=== PATIENT | female | born 2000 | race Caucasian/White ===

== ENCOUNTER 2019-08-17 09:00 | Inpatient (IN) | payer OTHER ==
[2019-08-17] MEDS: ELECTROLYTE-148 SOLN 1,000 ML IV SCH ×2 (09:50→16:15)
--- NOTE | 2019-08-17 09:57 | HP ---
Past Medical History - Admission Chief Complaint: 18 yo at 39+ weeks for induction due to IUGR. History Source: Patient Limitations to Obtaining History: No Limitations - Past Surgical History Hx Myomectomy: No Hx Transabdominal Cerclage: No Home Medications - Allergies Allergies/Adverse Reactions: Allergies Allergy/AdvReac Type Severity Reaction Status Date / Time No Known Allergies Allergy Verified 08/17/19 09:52 - Home Medications Home Medications: Ambulatory Orders NK [No Known Home Medication] 08/17/19 Review of Systems - Review of Systems Constitutional: reports: No Symptoms Eyes: reports: No Symptoms HENT: reports: No Symptoms Neck: reports: No Symptoms Cardiovascular: reports: No Symptoms Respiratory: reports: No Symptoms Gastrointestinal: reports: No Symptoms Genitourinary: reports: No Symptoms Breasts: reports: No Symptoms Reported Musculoskeletal: reports: No Symptoms Integumentary: reports: No Symptoms Neurological: reports: No Symptoms Endocrine: reports: No Symptoms Hematology/Lymphatic: reports: No Symptoms Psychiatric: reports: No Symptoms Physical Exam - Maternity Constitutional: Yes: Well Nourished Eyes: Yes: WNL HENT: Yes: WNL Neck: Yes: WNL Cardiovascular: Yes: WNL Lungs: Clear to auscultation Breast(s): Yes: WNL - Abdominal Exam/OB Number of Fetuses: Single Presentation: Vertex Contractions: No Monitor Mode: External Category: I Accelerations: Uniform Decelerations: None - Vaginal Exam/OB Vaginal Bleeding: No Speculum Exam: No Dilatation (cm): 1 cm Effacement (%): 50% Amniotic Membrane Status: Intact Presentation: Vertex/Position Station: -2 - Physical Exam Musculoskeletal: Yes: WNL Extremities: Yes: WNL Assessment/Plan IUP at 39+ weeks plan induction of labor oxytocin.
[2019-08-17] MEDS ORDERED: BUTORPHANOL TARTRATE 1 MG/ML VIAL IVPB ONE (10:01)
[2019-08-17] MEDS ORDERED: AMPICILLIN - 2 GM in SODIUM CHLORIDE 100 ML IVPB ONE (10:04)
[2019-08-17] MEDS ORDERED: SODIUM CHLORIDE 100 ML IVPB ONE ×3 (10:05→17:14)
[2019-08-17] MEDS ORDERED: AMPICILLIN SODIUM 2 GM VIAL ONE (10:05)
[2019-08-17 10:33] VITALS: BMI 27.8
[2019-08-17 10:43] LABS: BASO % 0.1 % (0-2.0); EOS % 0.5 % (0-4.5); HEMATOCRIT 35.3 % (32.4-45.2); HEMOGLOBIN 11.4 GM/dL (10.7-15.3); LYMPH % 18.5 % (8-40); MCH 26.9 pg (25.7-33.7); MCHC 32.2 g/dl (32.0-36.0); MEAN CELL VOLUME 83.7 fl (80-96); MEAN PLT VOLUME 9.9 fl (7.5-11.1); MONO % 8.3 % (3.8-10.2); NEUT % 72.6 % (42.8-82.8); PLATELET COUNT 170 K/MM3 (134-434); RBC 4.21 M/mm3 (3.60-5.2); RDW 14.7 % (11.6-15.6); WHITE BLOOD COUNT 7.8 K/mm3 (4.0-10.0)
[2019-08-17 10:49] LABS: INR 0.89 (0.83-1.09); PROTHROMBIN TIME (PATIENT) 10.5 SEC (9.7-13.0)
[2019-08-17] MEDS ORDERED: OXYTOCIN 30 UNITS in 0.9% NS 30 UNIT/500 ML INFUS.BAG IVPB ONE (10:51)
[2019-08-17 10:52] LABS: ACTIVATED PTT 30.1 SECONDS (25.2-36.5)
[2019-08-17] MEDS: OXYTOCIN 30 UNITS in 0.9% NS 30 UNIT/500 ML INFUS.BAG IVPB SCH (10:55)
[2019-08-17 11:13] LABS: BLOOD UREA NITROGEN 8.1 mg/dL (7-18); CREATININE 0.6 mg/dL (0.55-1.3); POTASSIUM 3.8 mmol/L (3.5-5.1)
[2019-08-17] MEDS ORDERED: AMPICILLIN SODIUM 1 GM VIAL ONE ×3 (14:04→22:04)
[2019-08-17] MEDS: AMPICILLIN - 1 GM in SODIUM CHLORIDE 100 ML IVPB SCH ×3 (14:10→22:05)
[2019-08-17] MEDS ORDERED: BUTORPHANOL TARTRATE 1 MG/ML VIAL ONE ×2 (21:07)
--- NOTE | 2019-08-17 23:08 | PN ---
Progress Note (short form) - Note Progress Note: cervix 2-3 cm 75% effaced vertex -2 arom clear fluid tracing recative at 140 BPM with good variability accelerations no decelerations category I plan pt had some variable decelerations pitocin to be turned off then if tracing improves will restart at 1/2.
[2019-08-18] MEDS ORDERED: AMPICILLIN SODIUM 1 GM VIAL ONE ×3 (00:55→08:15)
[2019-08-18] MEDS: ELECTROLYTE-148 SOLN 1,000 ML IV SCH ×2 (01:00→06:02)
[2019-08-18] MEDS: AMPICILLIN - 1 GM in SODIUM CHLORIDE 100 ML IVPB SCH ×4 (02:00→17:43)
[2019-08-18] MEDS ORDERED: PCA PUMP NR ONE ×2 (02:04→08:47)
[2019-08-18] MEDS ORDERED: FENTANYL/BUPIVACAINE/NS/PF - PCEA - 50 ML DISP.SYRIN EP ONE ×3 (02:04→12:53)
[2019-08-18] MEDS: FENTANYL/BUPIVACAINE/NS/PF - PCEA - 50 ML DISP.SYRIN EP SCH (04:00)
[2019-08-18] MEDS ORDERED: NALOXONE HCL 0.4 MG/ML VIAL IVPUSH PRN (04:11)
--- NOTE | 2019-08-18 07:38 | PN ---
Progress Note (short form) - Note Progress Note: Cervix 4 cm 1000% vertex -1 AROM clear fluid tracing reactive with good variability acceleratins no decelerations at 140 BPM category I plan resztart oxytocin at 1 Mu/min.
--- NOTE | 2019-08-18 11:20 | PN ---
Progress Note (short form) - Note Progress Note: pt. c/o feeling pressure vaginally vss - af fhr: Nl baseline 140. + accels, mod variability. early decels noted and few mild variables toco: uc's q 2 min ve: 7-8 / 100/-1 a/p P0 iup at term iol iugr in labor decrease pitocin epidural cont close monitoring.
[2019-08-18] MEDS ORDERED: BUPIVACAINE HCL/PF 0.25% (2.5MG/ML) 10 ML VIAL ONE (11:45)
[2019-08-18] MEDS ORDERED: OXYTOCIN 20 UNITS in 0.9% NS 20 UNIT/1,000 ML INFUS.BAG IV ONE (13:36)
[2019-08-18 14:50] LABS: CORD HCO3 17.9 mmHg (20-29); CORD PCO2 71.9 mmHg (30-78); CORD pH 7.013 (7.14-7.44)
[2019-08-18 14:54] LABS: CORD BASE EXCESS -13.6 mmol/L (0-2); CORD HCO3 16.1 mmHg (20-29); CORD pH 7.117 (7.14-7.44)
--- NOTE | 2019-08-18 15:23 | PN ---
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
[2019-08-19] MEDS: FENTANYL/BUPIVACAINE/NS/PF - PCEA - 50 ML DISP.SYRIN EP SCH (05:26)
[2019-08-19] MEDS ORDERED: ACETAMINOPHEN 325 MG TABLET (FP) PO PRN (07:01)
[2019-08-19] MEDS ORDERED: IBUPROFEN 600 MG TABLET (FP) PO PRN (07:01)
--- NOTE | 2019-08-19 11:55 | DS ---
Physical Exam-DIE REAMER Vital Signs: Vital Signs Temperature 98.6 F 08/19/19 09:51 Pulse Rate 99 H 08/19/19 09:51 Respiratory Rate 17 08/19/19 09:51 Blood Pressure 115/63 08/19/19 09:51 O2 Sat by Pulse Oximetry (%) 98 08/19/19 01:50 Constitutional: Yes: Well Nourished, No Distress Eyes: Yes: WNL HENT: Yes: WNL Neck: Yes: WNL Cardiovascular: Yes: WNL Respiratory: Yes: WNL Gastrointestinal: Yes: WNL ....Post : Yes: Uterus firm, Uterus non-tender Breast(s): Yes: WNL Musculoskeletal: Yes: WNL Extremities: Yes: WNL Edema: No Integumentary: Yes: WNL Neurological: Yes: WNL ...Motor Strength: WNL Psychiatric: Yes: WNL Labs: CBC, BMP 08/17/19 10:00 08/17/19 10:00 Delivery - Delivery Vaginal Delivery: No Problems Type of Anesthesia: Epidural Episiotomy/Laceration: Perineal Extension/lac, 2nd degree EBL (cc): 350 Delivery, Single - Stages of Labor Date 1st Stage Initiatied: 08/18/19 Time 1st Stage Initiated: 22:00 Date 2nd Stage Initiated: 08/18/19 Time 2nd Stage Initiated: 13:40 Date of Delivery: 08/18/19 Time of Delivery: 14:22 Time Placenta Delivered: 14:25 - 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: No Infant Gender: Female Weight: 2.41 kg Position: Left, OA Total Hours ROM (Hrs/Mins): 21H15M - 1 Minute Total Score: 8 5 Minutes Total Score: 9 - [place] Feeding Plan Initial Plan: Exclusive throughout hospitalization Discharge Summary Problems reviewed: Yes Reason For Visit: INDUCTION OF LABOR Current Active Problems (normal spontaneous vaginal delivery) (Acute) Procedures: Principal: Hospital Course: good Plan of Treatment: May go home F/U with Dr Mayfield in 4-6 wks Condition: Good - Instructions Diet, Activity, Other Instructions: Regular diet Activity as tolerated Referrals: Herson Mayfield MD [Non Staff, Medical] - Disposition: HOME - Home Medications Comprehensive Discharge Medication List: Ambulatory Orders Ferrous Sulfate [Iron] 325 mg PO DAILY 08/17/19 19 Tablet 1 tab PO DAILY 08/17/19
[2019-08-19 12:48] LABS: BASO % 0.2 % (0-2.0); EOS % 0.1 % (0-4.5); HEMATOCRIT 32.2 % (32.4-45.2); HEMOGLOBIN 10.3 GM/dL (10.7-15.3); LYMPH % 9.2 % (8-40); MCH 27.2 pg (25.7-33.7); MCHC 31.9 g/dl (32.0-36.0); MEAN CELL VOLUME 85.3 fl (80-96); MEAN PLT VOLUME 9.6 fl (7.5-11.1); MONO % 8.8 % (3.8-10.2); NEUT % 81.7 % (42.8-82.8); PLATELET COUNT 162 K/MM3 (134-434); RBC 3.78 M/mm3 (3.60-5.2); WHITE BLOOD COUNT 13.4 K/mm3 (4.0-10.0)
[2019-08-19] MEDS: ELECTROLYTE-148 SOLN 1,000 ML IV SCH (20:11)
[2019-08-19] MEDS: OXYTOCIN 30 UNITS in 0.9% NS 30 UNIT/500 ML INFUS.BAG IVPB SCH (20:11)
[2019-08-20 10:25] VITALS: BP 118/73; PULSE 71; TEMP 98.3
== END 2019-08-20 10:30 | disposition home or self-care (01) | DRG 560 ==
LOC: JLDR 09:00 → J3W 08-18 16:30
PROVIDERS: ADMIT Specialist; ATTEND Specialist
PROC: 3E033VJ Introduction of Other Hormone into Peripheral Vein, Percutaneous Approach (ICD-10-PCS; 2019-08-17)
PROC: 10E0XZZ Delivery of Products of Conception, External Approach (ICD-10-PCS; principal; 2019-08-18)
PROC: 10907ZC Drainage of Amniotic Fluid, Therapeutic from Products of Conception, Via Natural or Artificial Opening (ICD-10-PCS; 2019-08-18)
PROC: 0KQM0ZZ Repair Perineum Muscle, Open Approach (ICD-10-PCS; 2019-08-18)
PROC: 0W8NXZZ Division of Female Perineum, External Approach (ICD-10-PCS; 2019-08-18)
DX: O36.5930 Maternal care for other known or suspected poor fetal growth, third trimester, not applicable or unspecified (principal); O70.1 Second degree perineal laceration during delivery; O69.81X0 Labor and delivery complicated by cord around neck, without compression, not applicable or unspecified; Z37.0 Single live birth; Z3A.39 39 weeks gestation of pregnancy
CPT/HCPCS: 36415; 36600; 59409; 80048; 82803; 85025; 85610; 85730; 86780; 86850; 86900; 86901; 87389; U0003